=== PATIENT | female | born 1995 | race African-American/Black ===

== ENCOUNTER 2019-09-06 13:42 | Outpatient (CLI) | payer BC ==
--- NOTE | 2019-09-06 14:07 | ULT ---
LEFT BREAST ULTRASOUND: Date: 09/06/19 HISTORY: Palpable mass at the 6 o'clock and 12 o'clock positions of the left breast. TECHNIQUE: Multiplanar Finn scale and color Doppler images were obtained in a left breast ultrasound. FINDINGS: Normal appearing breast parenchyma is seen at the 6 o'clock and 12 o'clock positions of the left [address]. No suspicious mass or shadowing is seen. No cyst is identified. IMPRESSION: BI-RADS Category 1 - Negative. Annual screening mammography is recommended at the age of 40. POS: SEB
== END 2019-09-06 13:43 | disposition home or self-care (01) ==
LOC: BICULT 13:42
PROVIDERS: ATTEND Nurse Practitioner Family
DX: N64.4 Mastodynia (principal)